=== PATIENT | female | born 1975 ===

== ENCOUNTER 2018-04-15 17:59 | Emergency (ER) | payer SELFPAY ==
[2018-04-15 18:08] VITALS: BP 127/82; PULSE 68; RESP 18; TEMP 98.2; O2SAT 97
--- NOTE | 2018-04-15 18:36 | C.PDOC ---
History Of Present Illness 42 y/o female presents to the ED complaining of left dental pain for 2 days. Reports she took ibuprofen with minimal relief. Now complaining of persistent pain. Otherwise she denies any fever, chills, facial swelling, bleeding or discharge from area. Time Seen by Provider: 04/15/18 18:13 Chief Complaint (Nursing): Dental Pain History Per: Patient History/Exam Limitations: no limitations Onset/Duration Of Symptoms: Days Current Symptoms Are (Timing): Still Present Past Medical History Reviewed: Historical Data, Nursing Documentation, Vital Signs Vital Signs: Last Vital Signs Temp 98.2 F 04/15/18 18:03 Pulse 68 04/15/18 18:03 Resp 18 04/15/18 18:03 BP 127/82 04/15/18 18:03 Pulse Ox 97 04/15/18 18:03 - Medical History PMH: Hyperthyroidism Family History: States: No Known Family Hx - Social History Hx Alcohol Use: No Hx Substance Use: No - Immunization History Hx Tetanus Toxoid Vaccination: No Hx Influenza Vaccination: No Hx Pneumococcal Vaccination: No Review Of Systems Constitutional: Negative for: Fever, Chills ENT: Positive for: Mouth Pain (Left dental pain), Other (No facial swelling). Negative for: Ear Pain, Throat Pain, Throat Swelling Respiratory: Negative for: Cough, Shortness of Breath Physical Exam - Physical Exam Appears: Well, Non-toxic, No Acute Distress Skin: Warm, Dry Head: Atraumatic, Normacephalic, Other (No facial swelling) Eye(s): bilateral: Normal Inspection, PERRL, EOMI Oral Mucosa: Moist, No Trismus Teeth: Edentulous (partially), Tender To Palpation (at the left upper 3rd molar) Gingiva: Swelling (minimal gingival swelling near the molar), No Bleeding, No Abscess Throat: No Erythema, No Exudate, Other (no uvular deviation) Neck: Normal ROM, Supple Neurological/Psych: Oriented x3, Normal Speech ED Course And Treatment O2 Sat by Pulse Oximetry: 97 Medical Decision Making Medical Decision Making: Impression: Toothache Plan: Patient will be discharged home with prescriptions for Penicillin and Tylenol w codeine. Advised to follow up with a dentist without fail. Disposition Counseled Patient/Family Regarding: Diagnosis, Need For Followup, Rx Given - Disposition Disposition: HOME/ ROUTINE Disposition Time: 18:13 Condition: STABLE Additional Instructions: HEATHER HERRERA, thank you for letting us take care of you today. Your provider was Rosalinda Moncada MD and you were treated for DENTAL PAIN. The emergency medical care you received today was directed at your acute symptoms. If you were prescribed any medication, please fill it and take as directed. It may take several days for your symptoms to resolve. Return to the Emergency Department if your symptoms worsen, do not improve, or if you have any other problems. Please contact your doctor or call one of the physicians/clinics you have been referred to that are listed on the Patient Visit Information form that is included in your discharge packet. Bring any paperwork you were given at discharge with you along with any medications you are taking to your follow up visit. Our treatment cannot replace ongoing medical care by a primary care provider outside of the emergency department. Thank you for allowing the [employer] team to be part of your care today. If you had an X-Ray or CT scan: A Radiologist will review the ED reading if any change in treatment is needed we will contact you. If you had a blood, urine, or wound culture: It will take several days for the results, if any change in treatment is needed we will contact you. If you had an STI test: It will take 48 hours for the results. Please call after 1 week if you have not heard back. Prescriptions: Acetaminophen with Codeine [Tylenol with Codeine #3 Tablet] 1 each PO Q6H PRN #9 tablet PRN Reason: Pain, Severe (8-10) RX: Penicillin VK [Penicillin VK Tab] 500 mg PO Q6H #28 tab Instructions: Dental Pain (DC) Forms: [employer] (Persian) Print Language: YI - POA Present On Arrival: None - Clinical Impression Clinical Impression: Pain, dental - Scribe Statement The provider has reviewed the documentation as recorded by the Magdalena Grant Provider Attestation: All medical record entries made by the Magdalena were at my direction and personally dictated by me. I have reviewed the chart and agree that the record accurately reflects my personal performance of the history, physical exam, medical decision making, and the department course for this patient. I have also personally directed, reviewed, and agree with the discharge instructions and disposition.
== END 2018-04-15 18:42 | disposition home or self-care (01) ==
LOC: C.ER 17:59
DX: K08.89 Other specified disorders of teeth and supporting structures (principal)

== ENCOUNTER 2018-07-02 17:13 | Emergency (ER) | payer OTHER ==
[2018-07-02 17:21] VITALS: BMI 36.6
[2018-07-02 17:23] VITALS: BP 108/70; PULSE 64; TEMP 98.6; O2SAT 97
--- NOTE | 2018-07-02 17:52 | C.PDOC ---
History Of Present Illness 43 y/o female with PMH of hyperthyroidism presents to the ED c/o rash x 2 weeks. Rash is itchy and diffuse over arms, chest, and face. States she always gets this rash when she is off her thyroid medicine, but it is spreading to her face, prompting ED visit. Pt is from [facility] and has been here for 7 months without thyroid medication. Was seen by a clinic that provided her for a script for bloodwork that she has not yet completed. Requesting bloodwork today. Has no PMD in [place]. Denies fevers, chills, nausea, vomiting, throat/lip/mouth swelling, abdominal pain, dizziness, chest pain, SOB, or any other associated co mplaints. Time Seen by Provider: 07/02/18 17:23 Chief Complaint (Nursing): Abnormal Skin Integrity History Per: Patient, Policy And Planning Manager (Dr. Pereyra) History/Exam Limitations: no limitations Past Medical History Reviewed: Historical Data, Nursing Documentation, Vital Signs Vital Signs: Last Vital Signs Temp 98.6 F 07/02/18 17:21 Pulse 64 07/02/18 17:21 Resp 18 07/02/18 17:21 BP 108/70 07/02/18 17:21 Pulse Ox 97 07/02/18 17:21 - Medical History PMH: Hyperthyroidism Family History: States: No Known Family Hx - Social History Hx Alcohol Use: No Hx Substance Use: No - Immunization History Hx Tetanus Toxoid Vaccination: No Hx Influenza Vaccination: No Hx Pneumococcal Vaccination: No Review Of Systems Constitutional: Negative for: Fever, Chills Eyes: Positive for: Eyelid Inflammation. Negative for: Pain, Vision Change, Conjunctivae Inflammation, Redness ENT: Negative for: Ear Pain, Nose Pain, Throat Pain Cardiovascular: Negative for: Chest Pain, Palpitations Respiratory: Negative for: Cough, Shortness of Breath Gastrointestinal: Negative for: Nausea, Vomiting, Abdominal Pain, Diarrhea, Con stipation Genitourinary: Negative for: Dysuria, Frequency Musculoskeletal: Negative for: Neck Pain, Arm Pain, Back Pain, Leg Pain Skin: Positive for: Rash Neurological: Negative for: Weakness, Numbness, Headache, Dizziness Physical Exam - Physical Exam Appears: Well, Non-toxic, No Acute Distress Skin: Warm, Dry, Rash (diffuse discrete erythematous papules with surrounding erythema, some with scabbed centers scattered over arms, neck, face, and upper back) Head: Atraumatic, Normacephalic Eye(s): bilateral: Normal Inspection, PERRL, EOMI (without pain), Other (no proptosis ), left: Eyelid Inflammation (upper eyelid swelling and redness, no warmth ) Nose: Normal Throat: Normal, No Erythema, No Exudate, No Drooling Neck: Normal ROM, Supple Lymphatic: No Adenopathy Cardiovascular: Rhythm Regular Respiratory: Normal Breath Sounds Gastrointestinal/Abdominal: Soft, No Tenderness Back: No CVA Tenderness, No Muscle Spasm, No Paraspinal Tenderness Extremity: Normal ROM, Capillary Refill (<2s) Pulses: Left Radial: Normal, Right Radial: Normal Neurological/Psych: Oriented x3, Normal Speech, Normal Motor, Normal Sensation Gait: Steady ED Course And Treatment - Laboratory Results Result Diagrams: 07/02/18 18:13 07/02/18 18:13 O2 Sat by Pulse Oximetry: 97 Medical Decision Making Medical Decision Making: Initial Plan: * Blood work * Visual acuity * Bactrim * Keflex Encounter translated by Dr. Pereyra, ED attending, who evaluated and examined patient at bedside. Dr. Pereyra recommends bloodwork for clinic to be drawn today in ED, and antibiotics for rash secondary for suspicion of superimposed infection. Bloodwork reviewed, unremarkable. Thyroid antibodies pending. Visual acuity equal bilaterally. Advised clinic and dermatologic followup within 2 days. Pt given copies of diagnostic testing. Diagnostic testing results and plan of care discussed with patient. Strict instructions given regarding prescription use, importance of followup, and signs/symptoms to return to ER including worsening rash, fever, chills, or any other new/worsening symptoms. Pt verbalized understanding of discussion. Patient is A&Ox3, ambulating with steady gait, with vital signs stable for discharge. Disposition - Disposition Referrals: [facility] [Outside] Anitra Morton MD [Non-Staff] - Disposition: HOME/ ROUTINE Disposition Time: 19:20 Condition: STABLE Additional Instructions: Keflex cada 6 horas jin 7 thomas Bactrim cada 12 horas jin 7 thomas. Seguimiento con mdico primario / clnica dentro de 2 thomas. Regrese a la rene de emergencias con cualquier sntoma nuevo o que empeore Prescriptions: Cephalexin [Keflex] 500 mg PO QID 7 Days #28 capsule Sulfamethoxazole/Trimethoprim [Bactrim DS 800 mg-160 mg] 1 tab PO Q12 #14 tab Instructions: Cellulitis and Erysipelas (Skin Infections), Folliculitis (DC) Forms: Gen Discharge Inst Peruvian, [facility] (Peruvian), Work Excuse Print Language: PASHTO - Clinical Impression Clinical Impression: Cellulitis, Folliculitis
[2018-07-02 18:20] LABS: BASO % 0.2 % (0.0-2.0); EOS # 0.2 K/uL (0.0-0.7); EOS % 2.4 % (0.0-4.0); HEMOGLOBIN 11.9 g/dL (11.0-16.0); LYMPH # 2.8 K/uL (1.0-4.3); LYMPH % 35.2 % (20.0-40.0); MEAN CELL VOLUME 85.9 fL (81.0-99.0); MEAN CORPUSCULAR HEMOGLOBIN 28.1 pg (27.0-31.0); MEAN CORPUSCULAR HGB CONC 32.8 g/dL (33.0-37.0); MONO # 0.7 K/uL (0.0-0.8); MONO % 8.9 % (0.0-10.0); NEUT # 4.2 K/uL (1.8-7.0); NEUT % 53.3 % (50.0-75.0); NRBC % 0.1 % (0.0-2.0); RBC 4.22 Mil/uL (3.80-5.20); RED CELL DISTRIBUTION WIDTH 13.8 % (11.5-14.5); WHITE BLOOD COUNT 7.9 K/uL (4.8-10.8)
[2018-07-02 18:30] LABS: ALB/GLOB RATIO 1.4 (1.0-2.1); ALBUMIN 4.4 g/dL (3.5-5.0); ALT/SGPT 19 U/L (9-52); AST/SGOT 25 U/L (14-36); BLOOD UREA NITROGEN 16 mg/dL (7-17); CALCIUM 9.1 mg/dl (8.6-10.4); GFR NON-AFRICAN AMERICAN > 60
[2018-07-02] MEDS ORDERED: Potassium Chloride 20 mEq ER Tab PO STA (18:55)
[2018-07-02] MEDS ORDERED: Tmp-Smz 800 mg-160 mg DS Tab PO STA (19:00)
[2018-07-02] MEDS ORDERED: Potassium Chloride 20 mEq ER Tab PO ONE (19:04)
[2018-07-02] MEDS ORDERED: Tmp-Smz 800 mg-160 mg DS Tab ONE (19:07)
[2018-07-02 19:29] VITALS: RESP 20
== END 2018-07-02 19:26 | disposition home or self-care (01) ==
LOC: C.ER 17:13
DX: L03.818 Cellulitis of other sites (principal); L73.9 Follicular disorder, unspecified

== ENCOUNTER 2018-07-12 19:07 | Emergency (ER) | payer OTHER ==
[2018-07-12 19:08] VITALS: BMI 36.6
[2018-07-12 19:18] VITALS: RESP 18
--- NOTE | 2018-07-12 19:29 | C.PDOC ---
History Of Present Illness 43 y/o female pt presents to the ER c/o persistent itchy rash to face and arms for past x6 weeks. Pt was seen at clinic x1 week ago and had lab work done. Pt was treated with abx, but reports very little improvement. Pt has no known allergens and denies fever, SOB. Time Seen by Provider: 07/12/18 19:25 Chief Complaint (Nursing): Allergic Reaction History Per: Patient History/Exam Limitations: no limitations Onset/Duration Of Symptoms: Days (x6 weeks) Current Symptoms Are (Timing): Still Present Past Medical History Reviewed: Historical Data, Nursing Documentation, Vital Signs Vital Signs: Last Vital Signs Temp 97.8 F 07/12/18 19:12 Pulse 61 07/12/18 19:12 Resp 18 07/12/18 19:12 BP Pulse Ox 99 07/12/18 19:12 - Medical History PMH: Hyperthyroidism Family History: States: No Known Family Hx - Social History Hx Alcohol Use: No Hx Substance Use: No - Immunization History Hx Tetanus Toxoid Vaccination: No Hx Influenza Vaccination: No Hx Pneumococcal Vaccination: No Review Of Systems Except As Marked, All Systems Reviewed And Found Negative. Constitutional: Negative for: Fever Skin: Positive for: Rash (itchy to face and arms) Physical Exam - Physical Exam Appears: Non-toxic, No Acute Distress Skin: Warm, Dry, Rash (dry, hyperpigmented to b/l upper arms, hands and fingers with some excoriation on knuckles ) Head: Normacephalic, Swelling (minimal), Other (minimal swelling to upper eyelid; erythema to periorbital) Eye(s): bilateral: Normal Inspection, PERRL, EOMI Ear(s): Bilateral: Normal Nose: Normal Oral Mucosa: Moist Tongue: Normal Appearing Lips: Normal Appearing Throat: Normal, No Erythema, No Exudate Chest: Symmetrical Cardiovascular: Rhythm Regular Respiratory: Normal Breath Sounds, No Rales, No Rhonchi, No Wheezing Neurological/Psych: Oriented x3, Normal Speech, Normal Cognition, Normal Motor, Normal Sensation ED Course And Treatment O2 Sat by Pulse Oximetry: 99 (RA) Pulse Ox Interpretation: Normal Progress Note: Plans: -- benadryl. -- prednisone. Pt remains stable, no signs of cellulitis, rash is chronic in appearance, possibly contact allergies, vs dermatitis- like rash. pt will follow up with pMD Reassessment Condition: Improved Disposition Counseled Patient/Family Regarding: Diagnosis, Need For Followup, Rx Given - Disposition Referrals: [facility] at [facility] [Outside] Elana Crow MD [Staff Provider] - Disposition: HOME/ ROUTINE Disposition Time: 20:12 Condition: STABLE Additional Instructions: Use medications as directed Follow up with PMD Return to ER if worse Prescriptions: DiphenhydrAMINE [Benadryl] 25 mg PO QID #20 cap predniSONE [Prednisone] 40 mg PO DAILY #8 tab Triamcinolone Acetonide [Kenalog 0.025% cream] 1 applic TP BID #60 g Instructions: Skin Rash (DC) Forms: [employer] (Malagasy) Print Language: ENGLISH - Clinical Impression Clinical Impression: Skin rash - PA / GASOLINE CATALYST OPERATOR / Resident Statement / has reviewed & agrees with the documentation as recorded. - Scribe Statement The provider has reviewed the documentation as recorded by the Magdalena Shepard Do All medical record entries made by the Scribe were at my direction and personally dictated by me. I have reviewed the chart and agree that the record accurately reflects my personal performance of the history, physical exam, med ica decision making, and the department course for this patient. I have also personally directed, reviewed, and agree with the discharge instructions and disposition.
[2018-07-12 20:20] VITALS: BP 136/78; PULSE 66; TEMP 98.2
[2018-07-12 20:35] VITALS: O2SAT 99
== END 2018-07-12 20:25 | disposition home or self-care (01) ==
LOC: C.ER 19:07
DX: R21 Rash and other nonspecific skin eruption (principal)

== ENCOUNTER 2018-08-02 19:45 | Emergency (ER) | payer OTHER ==
[2018-08-02 19:47] VITALS: BMI 36.6
[2018-08-02 19:57] VITALS: BP 116/73; PULSE 68; RESP 18; TEMP 97.5; O2SAT 98
[2018-08-02] MEDS ORDERED: Dexamethasone 4 mg/1 ml IM STA (20:30)
[2018-08-02] MEDS ORDERED: Dexamethasone 4 mg/1 ml ONE (20:42)
--- NOTE | 2018-08-02 20:56 | C.PDOC ---
History Of Present Illness 43 year old female presents with itchy rash to the arms and facial area. Patient was seen in the ER and at the medical clinic, had blood work for allergies done, prednisone given in the ER, but symptoms continued. Denies SOB or fever. Time Seen by Provider: 08/02/18 20:02 Chief Complaint (Nursing): Allergic Reaction History Per: Patient History/Exam Limitations: no limitations Onset/Duration Of Symptoms: Days Possible Cause: Unknown Associated Symptoms: Skin Rash, Itching. denies: Dyspnea Home/EMS Treatment: Steroids Recent travel outside of the [place]: No Past Medical History Reviewed: Historical Data, Nursing Documentation, Vital Signs Vital Signs: Last Vital Signs Temp 97.5 F L 08/02/18 19:51 Pulse 68 08/02/18 19:51 Resp 18 08/02/18 19:51 BP 116/73 08/02/18 19:51 Pulse Ox 98 08/02/18 19:51 - Medical History PMH: Hyperthyroidism Denies: Chronic Kidney Disease Family History: States: Unknown Family Hx - Social History Hx Alcohol Use: No Hx Substance Use: No - Immunization History Hx Tetanus Toxoid Vaccination: No Hx Influenza Vaccination: Yes Hx Pneumococcal Vaccination: No Review Of Systems Constitutional: Negative for: Fever, Chills ENT: Negative for: Mouth Swelling, Throat Swelling Respiratory: Negative for: Shortness of Breath Skin: Positive for: Rash Physical Exam - Physical Exam Appears: Non-toxic Skin: Warm, Rash (Dry scaly scattered erythematous to volar aspect of bilateral forearms, fingers, and hands. Dry fine erythematous to face with minimal swelling.) Head: Atraumatic, Normacephalic Eye(s): bilateral: Normal Inspection Nose: Normal Oral Mucosa: Moist Throat: Normal, No Other (Swelling) Neck: Normal, Supple, No Other (Swelling) Chest: Symmetrical Cardiovascular: Rhythm Regular Respiratory: Normal Breath Sounds, No Accessory Muscle Use, No Stridor, No Wheezing Neurological/Psych: Oriented x3, Normal Speech ED Course And Treatment O2 Sat by Pulse Oximetry: 98 (Room air) Pulse Ox Interpretation: Normal Progress Note: Patient has appointment scheduled at the clinic with Dr. Crow, otherwise she reports some improvement, benadryl and decadron administered, will discharge home. Disposition Counseled Patient/Family Regarding: Diagnosis, Need For Followup, Rx Given - Disposition Referrals: [facility] [Outside] Disposition: HOME/ ROUTINE Disposition Time: 20:53 Condition: STABLE Additional Instructions: Please follow up with PMD/ Keep appointment on saturday Continue using cream prescribed Return to ER if worse Instructions: Dermatitis Forms: [facility] (Nepali) - Clinical Impression Clinical Impression: Dermatitis - PA / DESKTOP PUBLISHING SPECIALIST / Resident Statement MD/DO has reviewed & agrees with the documentation as recorded. - Scribe Statement The provider has reviewed the documentation as recorded by the Scribrenae Fontenot All medical record entries made by the Ramoneibrenae were at my direction and personally dictated by me. I have reviewed the chart and agree that the record accurately reflects my personal performance of the history, physical exam, medical decision making, and the department course for this patient. I have also personally directed, reviewed, and agree with the discharge instructions and disposition.
== END 2018-08-02 21:01 | disposition home or self-care (01) ==
LOC: C.ER 19:45
DX: L30.9 Dermatitis, unspecified (principal)
CPT/HCPCS: 96372; 99283; J1100

== ENCOUNTER 2018-08-07 18:06 | Emergency (ER) | payer OTHER ==
[2018-08-07 18:24] VITALS: BMI 29.0
[2018-08-07 18:27] VITALS: RESP 18; O2SAT 97
--- NOTE | 2018-08-07 19:53 | C.PDOC ---
History Of Present Illness 43 y/o female presents to the ER complaining of generalized rash which has been present for the past 4 months. Patient states that the rash is itchy. Patient has been evaluated for same complaint in [facility] 2-3 times. She notes that she was also evaluated in the clinic. She states that she has been taking medications including abx without relief.Denies having fever,chills, throat swelling, CP,SOB,nausea, and vomiting. Time Seen by Provider: 08/07/18 18:27 Chief Complaint (Nursing): Abnormal Skin Integrity History Per: Patient History/Exam Limitations: no limitations Onset/Duration Of Symptoms: Days Current Symptoms Are (Timing): Still Present Quality Of Symptoms: Itching Severity: Moderate Past Medical History Reviewed: Historical Data, Nursing Documentation, Vital Signs Vital Signs: Last Vital Signs Temp 98.6 F 08/07/18 18:24 Pulse 66 08/07/18 18:24 Resp 18 08/07/18 18:24 BP 109/72 08/07/18 18:24 Pulse Ox 97 08/07/18 18:24 - Medical History PMH: Hyperthyroidism Denies: Chronic Kidney Disease Other Surgeries: Hx of surgeries Family History: States: No Known Family Hx - Social History Hx Alcohol Use: No Hx Substance Use: No - Immunization History Hx Tetanus Toxoid Vaccination: No Hx Influenza Vaccination: No Hx Pneumococcal Vaccination: No Review Of Systems Except As Marked, All Systems Reviewed And Found Negative. Constitutional: Negative for: Fever, Chills ENT: Negative for: Throat Pain, Throat Swelling Cardiovascular: Negative for: Chest Pain Respiratory: Negative for: Shortness of Breath Skin: Positive for: Rash Physical Exam - Physical Exam Appears: Non-toxic, No Acute Distress Skin: Warm, Dry, Rash (scattered papular rash to dorsal aspect of bilateral arms and hands) Head: Normacephalic, Other (erythematous macular rash to bilateral cheeks and nose) Eye(s): bilateral: Normal Inspection Nose: Normal Oral Mucosa: Moist Tongue: Normal Appearing, No Swelling Lips: Normal Appearing, No Swelling Throat: Normal, No Erythema, No Exudate Neck: Supple Chest: Symmetrical Cardiovascular: Rhythm Regular Respiratory: Normal Breath Sounds, No Rales, No Rhonchi, No Wheezing Neurological/Psych: Oriented x3, Normal Speech ED Course And Treatment O2 Sat by Pulse Oximetry: 97 (RA) Pulse Ox Interpretation: Normal Medical Decision Making Medical Decision Making: Plan: --Doxycycline Hyclate PO --Prednisone PO Disposition - Disposition Referrals: [facility] [Outside] Disposition: HOME/ ROUTINE Disposition Time: 20:04 Condition: GOOD Additional Instructions: Follow up with the medical doctor within 1-2 days. Return if worsened. Prescriptions: Ketoconazole [Nizoral] 120 ml TP BID #1 shampoo Ketoconazole 2% Cr [Nizoral] 60 gm EXT BID #3 tube predniSONE [Prednisone] 10 mg PO BID #10 tab Instructions: Fungal Skin Rash (DC) Forms: [employer] (Macedonian) Print Language: OCCITAN - Clinical Impression Clinical Impression: Tinea corporis - PA / ASSOCIATE APPLICATION DEVELOPER / Resident Statement MD/DO has reviewed & agrees with the documentation as recorded. - Scribe Statement The provider has reviewed the documentation as recorded by the Ramoneibrenae Willams Provider Attestation All medical record entries made by the Scribe were at my direction and personally dictated by me. I have reviewed the chart and agree that the record accurately reflects my personal performance of the history, physical exam, medical decision making, and the department course for this patient. I have also personally directed, reviewed, and agree with the discharge instructions and disposition.
[2018-08-07 20:08] VITALS: BP 123/80; PULSE 61; TEMP 97.9
== END 2018-08-07 20:13 | disposition home or self-care (01) ==
LOC: C.ER 18:06
DX: B35.4 Tinea corporis (principal)

== ENCOUNTER 2018-08-17 20:19 | Emergency (ER) | payer OTHER ==
[2018-08-17 20:19] VITALS: BMI 29.0
[2018-08-17 20:25] VITALS: BP 112/70; PULSE 71; RESP 16; TEMP 98.5; O2SAT 97
--- NOTE | 2018-08-17 21:55 | C.PDOC ---
History Of Present Illness 43 year old female presents to the ED c/o chronic rash for the past 5 months. Patient has been seen in the ED previously for same. Patient went to see a Yard Warehouse Worker who prescribed her Permethrin. However patient reports she has gone to multiple pharmacies and has been unable to get the cream. Patient requesting similar medication. Patient denies fever, chills, facial swelling, SOB, wheezing. Time Seen by Provider: 08/17/18 20:29 Chief Complaint (Nursing): Allergic Reaction History Per: Patient History/Exam Limitations: no limitations Onset/Duration Of Symptoms: Persistent Current Symptoms Are (Timing): Still Present Possible Cause: Unknown Associated Symptoms: Skin Rash Severity: None Recent travel outside of the [place]: No Additional History Per: Patient Past Medical History Reviewed: Historical Data, Nursing Documentation, Vital Signs Vital Signs: Last Vital Signs Temp 98.5 F 08/17/18 20:23 Pulse 71 08/17/18 20:23 Resp 16 08/17/18 20:23 BP 112/70 08/17/18 20:23 Pulse Ox 97 08/17/18 20:23 - Medical History PMH: Hyperthyroidism Denies: Chronic Kidney Disease Surgical History: No Surg Hx Family History: States: Unknown Family Hx - Social History Hx Alcohol Use: No Hx Substance Use: No - Immunization History Hx Tetanus Toxoid Vaccination: No Hx Influenza Vaccination: No Hx Pneumococcal Vaccination: No Review Of Systems Constitutional: Negative for: Fever, Chills ENT: Negative for: Mouth Swelling, Throat Swelling Respiratory: Negative for: Cough, Shortness of Breath, Wheezing Gastrointestinal: Negative for: Vomiting Musculoskeletal: Negative for: Hand Pain Skin: Positive for: Rash Physical Exam - Physical Exam Appears: Non-toxic, No Acute Distress Skin: Warm, Dry, Rash (diffuse scally, dry erythematous rash to hands and between fingers. No open wounds, lesions) Head: Atraumatic, Normacephalic Eye(s): bilateral: Normal Inspection Oral Mucosa: Moist Tongue: No Swelling Lips: No Swelling Throat: Normal, No Erythema, No Exudate, No Drooling Chest: Symmetrical Cardiovascular: Rhythm Regular Respiratory: Normal Breath Sounds, No Rales, No Rhonchi, No Wheezing Extremity: Normal ROM Neurological/Psych: Oriented x3, Normal Speech, Normal Cognition Gait: Steady ED Course And Treatment O2 Sat by Pulse Oximetry: 97 (ON RA) Pulse Ox Interpretation: Normal Progress Note: Patient advised to fill prescription given to her. Patient stable for D/C, breathing without difficulty. Patient advsied to follow up with PMD and Yard Warehouse Worker. Disposition Counseled Patient/Family Regarding: Diagnosis, Need For Followup, Rx Given - Disposition Referrals: [facility] at [facility] [Outside] Disposition: HOME/ ROUTINE Disposition Time: 21:52 Condition: STABLE Additional Instructions: Please follow up in clinic Take medications as directed Fill out permethrin cream Return as needed Prescriptions: hydrOXYzine HCl [Atarax] 25 mg PO Q8H #30 tab predniSONE [Prednisone] 40 mg PO DAILY #10 tab Instructions: Skin Rash (DC), Scabies (DC) Forms: [employer] (Azeri) - Clinical Impression Clinical Impression: Skin rash, Scabies - PA / HYDROLOGIC MODELER / Resident Statement MD/DO has reviewed & agrees with the documentation as recorded. - Scribe Statement The provider has reviewed the documentation as recorded by the Scribe Den Saini All medical record entries made by the Scribe were at my direction and personally dictated by me. I have reviewed the chart and agree that the record accurately reflects my personal performance of the history, physical exam, m edical decision making, and the department course for this patient. I have also personally directed, reviewed, and agree with the discharge instructions and disposition.
== END 2018-08-17 22:05 | disposition home or self-care (01) ==
LOC: C.ER 20:19
DX: B86 Scabies (principal)